=== PATIENT | female | born 1975 | race Caucasian/White ===

== ENCOUNTER 2016-06-12 04:10 | Emergency (ER) | payer OTHER ==
[2016-06-12 04:25] VITALS: BMI 27.4
[2016-06-12] MEDS ORDERED: SODIUM CHLORIDE 0.9% 500 ML INFUS.BAG IV ONE ×2 (04:35→07:09)
--- NOTE | 2016-06-12 05:02 | PDOC ---
History of Present Illness - General History Source: Patient, Law Enforcement Exam Limitations: Other (uncooperative, confused) - History of Present Illness Initial Comments: 06/12/16 05:17 The patient is a 40 year old female with a significant past medical history of seizures, brought by ambulance with police to the Emergency Department with altered mental status. 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 The patient is uncooperative, and combative. She is unaware of what happened, and is not sure why she is here. As per past records, the patient has a history of seizures. Past Medical Hx: trigeminal neuralgia <Bella Peres - Last Filed: 06/12/16 07:10> <Namita Connor - Last Filed: 06/12/16 22:33> - General Chief Complaint: Lethargy Stated Complaint: ALTERED MENTAL STATUS Time Seen by Provider: 06/12/16 04:34 Past History <Bella Peres - Last Filed: 06/12/16 07:10> - Psycho/Social/Smoking Cessation Hx Anxiety: No Suicidal Ideation: No Smoking Status: No Smoking History: Unknown if ever smoked Have you smoked in the past 12 months: No Number of Cigarettes Smoked Daily: 0 Hx Alcohol Use: Yes Drug/Substance Use Hx: Yes <Namita Connor - Last Filed: 06/12/16 22:33> - Past Medical History Allergies/Adverse Reactions: Allergies Allergy/AdvReac Type Severity Reaction Status Date / Time No Known Allergies Allergy Verified 06/12/16 04:18 Home Medications: Ambulatory Orders Carbamazepine Xr [Tegretol Xr -] 400 mg PO BID 06/12/16 Pregabalin [Lyrica -] 75 mg PO BID 06/12/16 Review of Systems - Review of Systems Able to Perform ROS?: No (uncooperative, confused) <Bella Peres - Last Filed: 06/12/16 07:10> *Physical Exam - Vital Signs Last Vital Signs Temp Pulse Resp BP Pulse Ox 98 F 120 H 15 118/78 98 06/12/16 04:19 06/12/16 04:19 06/12/16 04:19 06/12/16 04:40 06/12/16 04:19 - Physical Exam Comments: 06/12/16 05:49 GENERAL: Arousable but combative, rude. A&O x2 HEAD: Missing multiple teeth, unclear of duration. No signs of trauma EYES: Pupils sluggishly reactive. EOMI, sclera anicteric, conjunctiva clear ENT: Auricles normal inspection, hearing grossly normal, nares patent, oropharynx clear without exudates. Moist mucosa NECK: Normal ROM, supple, no lymphadenopathy, JVD, or masses LUNGS: Breath sounds equal, clear to auscultation bilaterally. No wheezes, and no crackles HEART: Regular rate and rhythm, normal S1 and S2, no murmurs, rubs or gallops ABDOMEN: Soft, nontender, normoactive bowel sounds. No guarding, no rebound. No masses. No flank pain. EXTREMITIES: Normal range of motion, no edema. No clubbing or cyanosis. No cords, erythema, or tenderness NEUROLOGICAL: Cranial nerves II through XII grossly intact. SKIN: Warm, Dry, normal turgor, no rashes or lesions noted. <Bella Peres - Last Filed: 06/12/16 07:10> - Vital Signs Last Vital Signs Temp Pulse Resp BP Pulse Ox 98 F 120 H 15 118/78 98 06/12/16 04:19 06/12/16 04:19 06/12/16 04:19 06/12/16 04:19 06/12/16 04:19 <Namita Connor - Last Filed: 06/12/16 22:33> ED Treatment Course - LABORATORY CBC & Chemistry Diagram: 06/12/16 04:51 06/12/16 04:41 - ADDITIONAL ORDERS Additional order review: 06/12/16 04:51 RBC 3.45 L MCV 90.2 MCHC 32.9 RDW 14.2 MPV 7.8 Neutrophils % 53.4 Lymphocytes % 36.3 Monocytes % 7.2 Eosinophils % 2.7 Basophils % 0.4 - RADIOLOGY Radiology Studies Ordered: 06/12/16 06:24 CT brain As reviewed by Dr. Raymundo Carrillo IMPRESSION: No acute intracranial injury seen. - Medications Given in the ED: ED Medications Discontinued Medications Generic Name Dose Route Start Last Admin Trade Name Freq PRN Reason Stop Dose Admin Sodium Chloride 1,000 ml 06/12/16 04:35 06/12/16 04:40 Normal Saline - IV 06/12/16 04:36 1,000 ml ONCE ONE Administration <Bella Peres - Last Filed: 06/12/16 07:10> - LABORATORY CBC & Chemistry Diagram: 06/12/16 04:51 06/12/16 04:41 <Namita Connor - Last Filed: 06/12/16 22:33> Medical Decision Making - Medical Decision Making 06/12/16 06:22 Patient Name: Yong Huitron THIS IS A PRELIMINARY REPORT FROM IMAGING ARTIST AGENT DATE OF SERVICE: 2016-06-12 06:04:27.0 IMAGES: 76 EXAM: CT HEAD WITHOUT IV CONTRAST TECHNIQUE: Axial images from the skull base to the vertex. Bone and soft tissue windows were reviewed. Multi-planar reconstructions from the axial data set: No HISTORY: Altered mental status. COMPARISON: None. FINDINGS: Brain parenchymal architecture appears normal, with preservation of the beebe- white differentiation. Periventricular white matter is unremarkable. Ventricles and basilar cisterns are maintained. No acute intracranial hemorrhage, mass effect or midline shift. No abnormal intra-axial or extra- axial fluid collection is seen. Bones of the calvarium and imaged skull base demonstrate no acute abnormality. Mild mucosal thickening in the mastoid air cells is noted. IMPRESSION: 1. No acute intracranial injury seen. THIS DOCUMENT HAS BEEN ELECTRONICALLY SIGNED 06/12/16 07:07 Pt is more awake now. SHe tells me that she doesn't use drugs. States that she missed several carbamazepine doses. She likely had a seizure, which caused her to pass out at work. Pt's tegretol level is pending. Her acetaminophen level is pending. She should be admitted to telemetry for unwitnessed syncope vs seizure. Pt has no recollection of events. Even after 1L NSS, she still has tachycardia at 100bpm. She will be given a 2nd L of NSS. 06/12/16 07:15 Pt will be signed out to the day ER doctor. UTOX needs collection; cardiac enzymes added to bloods. Admit to hospitalist for unwitnessed syncope vs seizure <Namita Connor - Last Filed: 06/12/16 22:33> *DC/Admit/Observation/Transfer - Attestations Scribe Attestion: 06/12/16 05:52 Documentation prepared by Bella Peres, acting as medical physics teacher for Namita Connor MD. <Bella Peres - Last Filed: 06/12/16 07:10> <Namita Connor - Last Filed: 06/12/16 22:33> Diagnosis at time of Disposition: Seizure - Discharge Dispostion Disposition: HOME Condition at time of disposition: Stable - Referrals Referrals: Sondra Merchant [Primary Care Provider] - - Patient Instructions Printed Discharge Instructions: DI for Seizure Disorder -- Adult
[2016-06-12 05:03] LABS: BASOPHIL 0.4 % (0-2.0); EOSINOPHIL 2.7 % (0-4.5); MCH 29.7 pg (25.7-33.7); MCHC 32.9 g/dl (32.0-36.0); MEAN CELL VOLUME 90.2 fl (80-96); MEAN PLT VOLUME 7.8 fl (7.5-11.1); NEUTROPHILS 53.4 % (42.8-82.8); PLATELET COUNT 334 K/MM3 (134-434); RDW 14.2 % (11.6-15.6); WHITE BLOOD COUNT 6.1 K/mm3 (4.0-10.0)
[2016-06-12 05:18] LABS: INR 1.02 (0.82-1.09); PROTHROMBIN TIME (PATIENT) 11.2 SEC (9.98-11.88)
[2016-06-12 06:36] LABS: ALBUMIN 3.1 g/dl (3.4-5.0); ANION GAP 9 (8-16); CALCIUM 8.4 mg/dL (8.5-10.1); CO2 26 mmol/L (21-32); CREATININE 0.7 mg/dL (0.55-1.02); GLUCOSE,RANDOM 113 mg/dL (74-106); SGOT/AST 15 U/L (15-37); SGPT/ALT 18 U/L (12-78); TOT PROT 7.2 g/dl (6.4-8.2)
[2016-06-12 06:37] LABS: ALK PHOS 80 U/L (45-117); BILIRUBIN,TOTAL < 0.1 mg/dL (0.2-1.0)
[2016-06-12 07:45] VITALS: TEMP 98.3
--- NOTE | 2016-06-12 07:58 | PDOC ---
*Physical Exam - Vital Signs Last Vital Signs Temp Pulse Resp BP Pulse Ox 98.3 F 88 16 107/65 96 06/12/16 07:44 06/12/16 07:44 06/12/16 07:44 06/12/16 07:44 06/12/16 07:44 ED Treatment Course - LABORATORY CBC & Chemistry Diagram: 06/12/16 04:51 06/12/16 04:41 - ADDITIONAL ORDERS Additional order review: Laboratory Results 06/12/16 06/12/16 06/12/16 04:51 04:51 04:51 INR 1.02 Sodium Potassium Chloride Carbon Dioxide Anion Gap BUN Creatinine Creat Clearance w eGFR Random Glucose Calcium Total Bilirubin AST ALT Alkaline Phosphatase Total Protein Albumin Lipase Beta HCG, Quant < 1.0 Serum , Qual Salicylates < 4.0 Acetaminophen Alcohol, Quantitative 06/12/16 06/12/16 06/12/16 04:51 04:51 04:41 INR Sodium Potassium Chloride Carbon Dioxide Anion Gap BUN Creatinine Creat Clearance w eGFR Random Glucose Calcium Total Bilirubin AST ALT Alkaline Phosphatase Total Protein Albumin Lipase Beta HCG, Quant Serum , Qual Negative Salicylates Acetaminophen < 10.0 L Alcohol, Quantitative < 5.0 06/12/16 06/12/16 04:41 04:41 INR Sodium 141 Potassium 4.4 D Chloride 106 Carbon Dioxide 26 Anion Gap 9 BUN 19 H D Creatinine 0.7 Creat Clearance w eGFR > 60 Random Glucose 113 H D Calcium 8.4 L Total Bilirubin < 0.1 L D AST 15 ALT 18 Alkaline Phosphatase 80 Total Protein 7.2 Albumin 3.1 L Lipase 142 Beta HCG, Quant Serum , Qual Salicylates Acetaminophen Alcohol, Quantitative 06/12/16 04:51 RBC 3.45 L MCV 90.2 MCHC 32.9 RDW 14.2 MPV 7.8 Neutrophils % 53.4 Lymphocytes % 36.3 Monocytes % 7.2 Eosinophils % 2.7 Basophils % 0.4 - Medications Given in the ED: ED Medications Discontinued Medications Generic Name Dose Route Start Last Admin Trade Name Freq PRN Reason Stop Dose Admin Sodium Chloride 1,000 ml 06/12/16 04:35 06/12/16 04:40 Normal Saline - IV 06/12/16 04:36 1,000 ml ONCE ONE Administration Medical Decision Making - Medical Decision Making 06/12/16 07:39 Pt endorsed to me by Dr. Connor at 7am shift change. Presented with AMS, lost consciousness at work. She is currently somnolent, but awakens to voice, answers questions. She missed her last dose of tegretol. Suspect seizure, now with post-ictal state. Will continue to monitor until she is more alert. 06/12/16 14:13 Pt more awake at this point, answering questions. She states "I had a seizure". We confirmed her dose of tegretol so she could have a dose in the ED. We discussed that missing any doses can lead to seizures. She is getting IV fluids for mild hypotension. Will cont to monitor. 06/12/16 14:49 Pt eating lunch, with family. She is much more alert, endorses feeling much better. Wishes to go home. *DC/Admit/Observation/Transfer Diagnosis at time of Disposition: Seizure - Discharge Dispostion Disposition: HOME Condition at time of disposition: Stable Admit: No - Referrals Referrals: Sondra Merchant [Primary Care Provider] - - Patient Instructions Printed Discharge Instructions: DI for Seizure Disorder -- Adult - Post Discharge Activity
[2016-06-12 13:13] VITALS: BP 88/49; PULSE 84
[2016-06-12] MEDS ORDERED: SODIUM CHLORIDE 1,000 ML IV STA (13:14)
[2016-06-12] MEDS ORDERED: carBAMazepine 100 MG TAB.CHEW PO ONE (13:18)
[2016-06-12] MEDS ORDERED: carBAMazepine 200 MG TABLET PO ONE (13:18)
[2016-06-12] MEDS ORDERED: carBAMazepine 200 MG TABLET ONE (13:24)
--- NOTE | 2016-06-13 00:41 | EKG ---
Test Reason : Blood Pressure : / mmHG Vent. Rate : 114 BPM Atrial Rate : 114 BPM P-R Int : 138 ms QRS Dur : 076 ms QT Int : 340 ms P-R-T Axes : 043 017 020 degrees QTc Int : 468 ms SINUS TACHYCARDIA OTHERWISE NORMAL ECG WHEN COMPARED WITH ECG OF 27-AUG-2015 19:59, [place] INTERVAL HAS INCREASED T WAVE VARIATION Confirmed by ADITHYA CLAYTON MD ([id number]) on 06/13/2016 12:40:51 AM Referred By: Confirmed By:ADITHYA CLAYTON MD
== END 2016-06-12 14:48 | disposition home or self-care (01) ==
LOC: JER 04:10
PROC: 3E0337Z Introduction of Electrolytic and Water Balance Substance into Peripheral Vein, Percutaneous Approach (ICD-10-PCS; principal; 2016-06-12)
DX: G40.802 Other epilepsy, not intractable, without status epilepticus (principal); Z91.14 Patient's other noncompliance with medication regimen
CPT/HCPCS: 36415; 70450-TC; 71010-TC; 80053; 80307; 83690; 84702; 84703; 85025; 85610; 93005; 93010; 96360; 99284-25

== ENCOUNTER 2016-08-20 19:26 | Emergency (ER) | payer OTHER ==
--- NOTE | 2016-08-20 19:43 | PDOC ---
History of Present Illness - General History Source: Patient Exam Limitations: No Limitations - History of Present Illness Initial Comments: 08/20/16 20:32 The patient is a 40-year-old female with a significant past medical history of seizures and trigeminal neuralgia, and presents to the emergency department with pain to the left side of her face today. She states that the pain is unrelieved with the carbamazepine or Lyrica provided by her doctor. She states that the facial pain is causing her difficulty when eating, talking, or brushing her teeth. She denies any facial swelling, decreased sensation to the face, or neck discomfort. The patient denies chest pain, shortness of breath, headache and dizziness. The patient denies fever, chills, nausea, vomit, diarrhea and constipation. Allergies: NKDA Social History: Denies any toxic habits Neurologist: Dr. Boothe <Edna Valenzuela - Last Filed: 08/20/16 20:32> <Namita Connor - Last Filed: 08/20/16 22:33> - General Chief Complaint: Pain Stated Complaint: PAIN Time Seen by Provider: 08/20/16 19:38 Past History <Edna Valenzuela - Last Filed: 08/20/16 20:32> - Past Medical History Other medical history: trigeminal neuralgia - Psycho/Social/Smoking Cessation Hx Anxiety: No Suicidal Ideation: No Smoking Status: No Smoking History: Never smoked Have you smoked in the past 12 months: No Number of Cigarettes Smoked Daily: 0 Hx Alcohol Use: Yes Drug/Substance Use Hx: Yes <Namita Connor - Last Filed: 08/20/16 22:33> - Past Medical History Allergies/Adverse Reactions: Allergies Allergy/AdvReac Type Severity Reaction Status Date / Time No Known Allergies Allergy Verified 08/20/16 19:32 Home Medications: Ambulatory Orders Carbamazepine Xr [Tegretol Xr -] 400 mg PO BID 06/12/16 Pregabalin [Lyrica -] 75 mg PO BID 06/12/16 Tramadol HCl/Acetaminophen [Tramadol-Acetaminophn 37.5-325] 2 tab PO TID #30 tablet MDD 6 08/20/16 Review of Systems - Review of Systems Able to Perform ROS?: Yes Comments:: 08/20/16 20:33 CONSTITUTIONAL: Absent: fever, chills, diaphoresis, generalized weakness, malaise, loss of appetite HEENT: Present: (+) facial pain Absent: rhinorrhea, nasal congestion, throat pain, throat swelling, difficulty swallowing, mouth swelling, ear pain, eye pain, visual changes CARDIOVASCULAR: Absent: chest pain, syncope, palpitations, irregular heart rate, lightheadedness , peripheral edema RESPIRATORY: Absent: cough, shortness of breath, dyspnea with exertion, orthopnea, wheezing, stridor, hemoptysis GASTROINTESTINAL: Absent: abdominal pain, abdominal distension, nausea, vomiting, diarrhea, constipation, melena, hematochezia GENITOURINARY: Absent: dysuria, frequency, urgency, hesitancy, hematuria, flank pain, genital pain MUSCULOSKELETAL: Absent: myalgia, arthralgia, joint swelling SKIN: Absent: rash, itching, pallor HEMATOLOGIC/IMMUNOLOGIC: Absent: easy bleeding, easy bruising, lymphadenopathy, frequent infections ENDOCRINE: Absent: unexplained weight gain, unexplained weight loss, heat intolerance, cold intolerance NEUROLOGIC: Absent: headache, focal weakness or paresthesias, dizziness, unsteady gait, seizure, mental status changes, bladder or bowel incontinence PSYCHIATRIC: Absent: anxiety, depression, suicidal or homicidal ideation, hallucinations. <Edna Valenzuela - Last Filed: 08/20/16 20:32> *Physical Exam - Vital Signs Last Vital Signs Temp Pulse Resp BP Pulse Ox 99.4 F 72 18 124/72 97 08/20/16 19:28 08/20/16 19:28 08/20/16 19:28 08/20/16 19:28 08/20/16 19:28 - Physical Exam Comments: 08/20/16 20:33 GENERAL: Well developed, well nourished. Awake and alert. No acute distress. HEENT: Normocephalic, atraumatic. PERRLA, EOMI. No conjunctival pallor. Sclera are non- icteric. Moist mucous membranes. Oropharynx is clear. NECK: Supple. Full ROM. No JVD. Carotid pulses 2+ and symmetric, without bruits. No thyromegaly. No lymphadenopathy. CARDIOVASCULAR: Regular rate and rhythm. No murmurs, rubs, or gallops. Distal pulses are 2+ and symmetric. PULMONARY: No evidence of respiratory distress. Lungs clear to auscultation bilaterally. No wheezing, rales or rhonchi. ABDOMINAL: Soft. Non-tender. Non-distended. No rebound or guarding. No organomegaly. Normoactive bowel sounds. MUSCULOSKELETAL Normal range of motion at all joints. No bony deformities or tenderness. No CVA tenderness. EXTREMITIES: No cyanosis. No clubbing. No edema. No calf tenderness. SKIN: Warm and dry. Normal capillary refill. No rashes. No jaundice. NEUROLOGICAL: Alert, awake, appropriate. Cranial nerves 2-12 intact. No deficits to light touch and temperature in face, upper extremities and lower extremities. No motor deficits in the in face, upper extremities and lower extremities. Normoreflexic in the upper and lower extremities. Normal speech. Toes are down- going bilaterally. PSYCHIATRIC: Cooperative. Good eye contact. Appropriate mood and affect. <Edna Valenzuela - Last Filed: 08/20/16 20:32> - Vital Signs Last Vital Signs Temp Pulse Resp BP Pulse Ox 99.4 F 72 18 124/72 97 08/20/16 19:28 08/20/16 19:28 08/20/16 19:28 08/20/16 19:28 08/20/16 19:28 <Namita Connor - Last Filed: 08/20/16 22:33> ED Treatment Course - Medications Given in the ED: ED Medications Discontinued Medications Generic Name Dose Route Start Last Admin Trade Name Madalyn PRN Reason Stop Dose Admin Ibuprofen 600 mg 08/20/16 19:47 08/20/16 19:59 Motrin - PO 08/20/16 19:48 600 mg ONCE ONE Administration Ketorolac Tromethamine 30 mg 08/20/16 19:54 08/20/16 20:08 Toradol Injection - IVPUSH 08/20/16 19:55 30 mg ONCE ONE Administration Sodium Chloride 1,000 ml 08/20/16 19:53 08/20/16 20:08 Normal Saline - IV 08/20/16 19:54 1,000 ml ONCE ONE Administration <Edna Valenzuela - Last Filed: 08/20/16 20:32> Medical Decision Making - Medical Decision Making 08/20/16 22:31 Pt comes with trigeminal neuralgia attack to the right side of her face. She follows with Dr. Boothe. Incidentally she has had percocet detox in her past, so I will not treat with narcotics. score caller neuro Dr. Hoff in the ER at this time. e spoke to the patient, and offered her hydration and toradol. SHe will follow with her neurologiost. I will give her tramadol to go. No need for labs at this time. She has a normal physical exam. CN 5-2 affected. <Namita Connor - Last Filed: 08/20/16 22:33> *DC/Admit/Observation/Transfer - Attestations Scribe Attestion: 08/20/16 20:33 Documentation prepared by Edna Valenzuela, acting as medical referral coordinator for Namita Connor MD. <Edna Valenzuela - Last Filed: 08/20/16 20:32> - Discharge Dispostion Admit: No <Namita Connor - Last Filed: 08/20/16 22:33> Diagnosis at time of Disposition: Trigeminal neuralgia, Trigeminal neuralgia of right side of face - Discharge Dispostion Disposition: HOME Condition at time of disposition: Stable - Prescriptions Prescriptions: Tramadol HCl/Acetaminophen [Tramadol-Acetaminophn 37.5-325] 2 tab PO TID #30 tablet MDD 6 - Referrals Referrals: Sondra Merchant [Primary Care Provider] - Raymundo Boothe MD [Staff Physician] - Ariel Hoff MD [Staff Physician] - - Patient Instructions Printed Discharge Instructions: DI for Trigeminal Neuralgia
[2016-08-20] MEDS ORDERED: IBUPROFEN 600 MG TABLET (FP) PO ONE ×2 (19:47→19:49)
[2016-08-20] MEDS ORDERED: SODIUM CHLORIDE 0.9% 1000 ML INFUS.BAG IV ONE (19:53)
[2016-08-20] MEDS ORDERED: KETOROLAC TROMETHAMINE 30 MG/1 ML VIAL IVPUSH ONE (19:54)
[2016-08-20] MEDS ORDERED: KETOROLAC TROMETHAMINE 30 MG/1 ML VIAL ONE (20:01)
[2016-08-20 20:14] VITALS: BP 124/72; PULSE 72; TEMP 99.4; BMI 24.5
== END 2016-08-20 21:12 | disposition home or self-care (01) ==
LOC: JER 19:26
PROC: 3E0333Z Introduction of Anti-inflammatory into Peripheral Vein, Percutaneous Approach (ICD-10-PCS; principal; 2016-08-20)
DX: G50.0 Trigeminal neuralgia (principal); G40.909 Epilepsy, unspecified, not intractable, without status epilepticus
CPT/HCPCS: 96374; 99282-25

== ENCOUNTER 2016-08-22 15:56 | Emergency (ER) | payer OTHER ==
[2016-08-22 16:22] VITALS: BP 142/87; PULSE 84; TEMP 100.2; BMI 23.8
--- NOTE | 2016-08-22 17:24 | PDOC ---
History of Present Illness - General Chief Complaint: Pain, Acute Stated Complaint: TRIGEMINAL NEURALGIA EXACERBATION Time Seen by Provider: 08/22/16 16:44 Past History - Past Medical History Allergies/Adverse Reactions: Allergies Allergy/AdvReac Type Severity Reaction Status Date / Time No Known Allergies Allergy Verified 08/22/16 16:18 Home Medications: Ambulatory Orders Carbamazepine Xr [Tegretol Xr -] 400 mg PO BID 06/12/16 Pregabalin [Lyrica -] 75 mg PO BID 06/12/16 Tramadol HCl/Acetaminophen [Tramadol-Acetaminophn 37.5-325] 2 tab PO TID #30 tablet MDD 6 08/20/16 - Psycho/Social/Smoking Cessation Hx Anxiety: No Suicidal Ideation: No Smoking Status: No Smoking History: Never smoked Have you smoked in the past 12 months: No Number of Cigarettes Smoked Daily: 0 Hx Alcohol Use: Yes Drug/Substance Use Hx: Yes *Physical Exam - Vital Signs Last Vital Signs Temp Pulse Resp BP Pulse Ox 100.2 F H 84 19 142/87 98 08/22/16 16:18 08/22/16 16:18 08/22/16 16:18 08/22/16 16:18 08/22/16 16:18 Medical Decision Making - Medical Decision Making 08/22/16 18:11I am seeing this pt with Dr Quach the resident and he has spoken w Dr Raymundo Boothe about this pt's trigeminal neuralgia -pt has suffered w this for several years, Now her lyrica and tegretol are not helping -pt is on distress holding the rt side of her face *DC/Admit/Observation/Transfer Diagnosis at time of Disposition: Trigeminal neuralgia of right side of face - Discharge Dispostion Disposition: HOME Condition at time of disposition: Stable - Referrals Referrals: Sondra Merchant [Primary Care Provider] - Raymundo Boothe MD [Staff Physician] - - Patient Instructions Printed Discharge Instructions: DI for Trigeminal Neuralgia
[2016-08-22] MEDS ORDERED: OXcarbazepine 300 MG/5 ML 250 ML BULK BOTTLE PO ONE (17:55)
--- NOTE | 2016-08-22 17:59 | PDOC ---
History of Present Illness - General Chief Complaint: Pain, Acute Stated Complaint: TRIGEMINAL NEURALGIA EXACERBATION Time Seen by Provider: 08/22/16 16:44 History Source: Patient Exam Limitations: No Limitations - History of Present Illness Initial Comments: 40 F with h/o trigeminal neuralgia presented to the ED with severe pain in R face. She stated the pain has been going on for 5 days and it's getting worse. It's located in R face, non-radiating, stabbing like, similar to the pain she always has. Denies fever, chills, chest pain, sob, n/v, urinary or bowel symptoms. Past History - Past Medical History Allergies/Adverse Reactions: Allergies Allergy/AdvReac Type Severity Reaction Status Date / Time No Known Allergies Allergy Verified 08/22/16 16:18 Home Medications: Ambulatory Orders Carbamazepine Xr [Tegretol Xr -] 400 mg PO BID 06/12/16 Pregabalin [Lyrica -] 75 mg PO BID 06/12/16 Tramadol HCl/Acetaminophen [Tramadol-Acetaminophn 37.5-325] 2 tab PO TID #30 tablet MDD 6 08/20/16 - Psycho/Social/Smoking Cessation Hx Anxiety: No Suicidal Ideation: No Smoking Status: No Smoking History: Never smoked Have you smoked in the past 12 months: No Number of Cigarettes Smoked Daily: 0 Hx Alcohol Use: Yes Drug/Substance Use Hx: Yes Review of Systems - Review of Systems Able to Perform ROS?: Yes Is the patient limited Indonesian proficient: No Constitutional: No: Chills, Fever Respiratory: No: Cough, Shortness of Breath Cardiac (ROS): No: Chest Pain ABD/GI: No: Nausea, Vomiting Neurological: Yes: Other (severe pain in R face). No: Headache, Numbness, Paresthesia, Seizure, Tingling, Weakness, Unsteady Gait *Physical Exam - Vital Signs Last Vital Signs Temp Pulse Resp BP Pulse Ox 100.2 F H 84 19 142/87 98 08/22/16 16:18 08/22/16 16:18 08/22/16 16:18 08/22/16 16:18 08/22/16 16:18 - Physical Exam General Appearance: No: Apparent Distress Respiratory/Chest: positive: Lungs Clear, Normal Breath Sounds Cardiovascular: positive: Regular Rhythm, Regular Rate, S1, S2. negative: Murmur Neurologic: positive: Numbness, Sensory Deficit Medical Decision Making - Medical Decision Making 08/22/16 18:[address] Boothe. Will urge the patient to restart her tegretol and lyrica as directed and follow up with Dr. Boothe as soon as possible in his office. 08/22/16 18:45 Explained to patient that compliance and follow up with her neurologist is very important. *DC/Admit/Observation/Transfer Diagnosis at time of Disposition: Trigeminal neuralgia of right side of face - Discharge Dispostion Disposition: HOME Condition at time of disposition: Stable Admit: No - Referrals Referrals: Sondra Merchant [Primary Care Provider] - Raymundo Boothe MD [Staff Physician] - - Patient Instructions Printed Discharge Instructions: DI for Trigeminal Neuralgia
== END 2016-08-22 18:45 | disposition home or self-care (01) ==
LOC: JER 15:56
DX: G50.0 Trigeminal neuralgia (principal)
CPT/HCPCS: 99281-25

== ENCOUNTER 2017-09-26 11:57 | Emergency (ER) | payer OTHER ==
[2017-09-26 12:26] VITALS: BP 112/80; PULSE 62; TEMP 98.1; BMI 31.1
[2017-09-26] MEDS ORDERED: MAGNESIUM HYDROX 2400MG/30ML ORAL SUSPENSION 30 ML CUP PO ONE (13:53)
[2017-09-26] MEDS ORDERED: MAG HYDROX/AL HYDROX/SIMETH 30 ML UNIT-DOSE CUP ONE (13:58)
--- NOTE | 2017-09-26 13:59 | PDOC ---
History of Present Illness - General Chief Complaint: Constipation Stated Complaint: ABD PAIN Time Seen by Provider: 09/26/17 12:42 History Source: Patient Exam Limitations: No Limitations - History of Present Illness Initial Comments: 09/26/17 13:53 42 year old female with no medical history and surgical history of x 1 , presents with constipation x 4-5 days and abdominal discomfort after eating. Reports trying to use medication but only passes occasional rodo. Denies nausea, vomiting or diarrhea. Timing/Duration: reports: getting worse Quality: reports: fullness Abdominal Pain Onset Location: reports: RUQ, epigastric Pain Radiation: reports: no radiation Activities at Onset: reports: eating Treatment Prior to Arrive: improves with: laxative Aggravating Factors: improves with: Eating Alleviating Factors: improves with: Passing Gas Past History - Travel Traveled outside of the country in the last 30 days: No Close contact w/someone who was outside of country & ill: No - Past Medical History Allergies/Adverse Reactions: Allergies Allergy/AdvReac Type Severity Reaction Status Date / Time No Known Allergies Allergy Verified 09/26/17 12:23 Home Medications: Ambulatory Orders Pregabalin [Lyrica -] 75 mg PO BID 06/12/16 Buprenorphine HCl/Naloxone HCl [Suboxone 8 mg-2 mg Sl Tablets] 1 each SL ASDIR 09/26/17 Magnesium Hydroxide [Milk of Magnesia] 400 mg PO TID #1 oral.susp 09/26/17 Polyethylene Glycol 3350 [Miralax (For Daily Use) -] 17 gm PO DAILY #1 bottle - Suicide/Smoking/Psychosocial Hx Smoking Status: No Smoking History: Never smoked Have you smoked in the past 12 months: No Number of Cigarettes Smoked Daily: 0 Hx Alcohol Use: Yes Drug/Substance Use Hx: Yes Abd/GI Specific PMHX - Complaint Specific PMHX Colitis: No Diverticulitis: No GERD: No Irritable Bowel Synd (IBS): No GI Ulcer Disease: No Review of Systems - Review of Systems Able to Perform ROS?: Yes Is the patient limited Bengali proficient: No Constitutional: No: Chills, Fever, Night Sweats, Weakness HEENTM: No: Nose Pain, Nose Congestion, Throat Swelling, Mouth Pain Respiratory: No: Orthopnea, Shortness of Breath, Stridor, Productive cough Cardiac (ROS): No: Chest Pain, Lightheadedness, Palpitations ABD/GI: Yes: Abdominal Distended, Constipated, Abdominal cramping. No: Nausea Musculoskeletal: No: Back Pain, Gout, Joint Pain, Muscle Weakness, Neck Pain *Physical Exam - Vital Signs Last Vital Signs Temp Pulse Resp BP Pulse Ox 98.1 F 62 20 112/80 100 09/26/17 12:23 09/26/17 12:23 09/26/17 12:23 09/26/17 12:23 09/26/17 12:23 - Physical Exam General Appearance: Yes: Nourished, Appropriately Dressed HEENT: positive: MELINA, Pharynx Normal Neck: positive: Supple. 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 mom given abdominal upright done 09/26/17 14:37 patient reports good return with milk of magnesia 09/26/17 19:32 rx: miralax, mom *DC/Admit/Observation/Transfer Diagnosis at time of Disposition: Constipation Qualifiers: Constipation type: drug induced constipation Qualified Code(s): K59.03 - Drug induced constipation - Discharge Dispostion Disposition: HOME Condition at time of disposition: Good Decision to Admit order: No - Prescriptions Prescriptions: Magnesium Hydroxide [Milk of Magnesia] 400 mg PO TID #1 oral.susp Polyethylene Glycol 3350 [Miralax (For Daily Use) -] 17 gm PO DAILY #1 bottle - Referrals Referrals: Jamil Live MD [Primary Care Provider] - - Patient Instructions Additional Instructions: Please drink water, and include fruits and vegetable in your diet. Also don't wait to use the bathroom. Call primary physician for follow up appointment - Post Discharge Activity Forms/Work/School Notes: Back to Work
== END 2017-09-26 15:21 | disposition home or self-care (01) ==
LOC: JERFT 11:57
DX: K59.03 Drug induced constipation (principal)
CPT/HCPCS: 74021-TC-FY; 99281-25

== ENCOUNTER 2018-01-19 02:37 | Emergency (ER) | payer OTHER ==
--- NOTE | 2018-01-19 02:47 | PDOC ---
History of Present Illness - General Stated Complaint: PAIN Time Seen by Provider: 01/19/18 02:41 History Source: Patient - History of Present Illness Initial Comments: 01/19/18 02:50 Patient is a 42 year old female with a PMH of seizures and Trigeminal Neuralgia presents to our ED with a exacerbation of her symptoms. Patient states she normally takes Carbamezapine (400 mg daily) however it is not relieving her pain. She took two additional 200 mg pills without any relief of her symptoms. Patient states rubbing her face relieves her pain. Patient states she follows with Dr. Boothe and she last saw him one month previous. Patient states she is adherent to her medication regimen of Carbamezapine (400 mg QD) and Lyrica (75 mg BID) Patient denies chest pain, shortness of breath. Patient denies abdominal pain, nausea/vomiting, diarrhea/constipation As per EMR patient was last evaluated in our ED for her Trigeminal Neuralgia in 2016 at which time her pain resolved with Toradol. Past History - Past Medical History Allergies/Adverse Reactions: Allergies Allergy/AdvReac Type Severity Reaction Status Date / Time No Known Allergies Allergy Verified 01/19/18 02:55 Home Medications: Ambulatory Orders Pregabalin [Lyrica -] 75 mg PO BID 06/12/16 Buprenorphine HCl/Naloxone HCl [Suboxone 8 mg-2 mg Sl Tablets] 1 each SL ASDIR 09/26/17 Magnesium Hydroxide [Milk of Magnesia] 400 mg PO TID #1 oral.susp 09/26/17 Polyethylene Glycol 3350 [Miralax (For Daily Use) -] 17 gm PO DAILY #1 bottle - Suicide/Smoking/Psychosocial Hx Smoking Status: No Smoking History: Never smoked Have you smoked in the past 12 months: No Number of Cigarettes Smoked Daily: 0 Hx Alcohol Use: Yes Drug/Substance Use Hx: Yes Review of Systems - Review of Systems Constitutional: No: Chills, Fever HEENTM: No: Blurred Vision, Double Vision Respiratory: No: Cough, Shortness of Breath Cardiac (ROS): No: Chest Pain, Lightheadedness, Syncope ABD/GI: No: Constipated, Diarrhea, Nausea, Vomiting *Physical Exam - Physical Exam General Appearance: Yes: Nourished HEENT: positive: Normal Voice, Hearing Grossly Normal, Other (R sided skin abrasion in distribution of V3) Neck: positive: Trachea midline, Supple Respiratory/Chest: positive: Lungs Clear, Normal Breath Sounds Cardiovascular: positive: S1, S2. negative: Edema, Murmur Gastrointestinal/Abdominal: positive: Normal Bowel Sounds, Soft Extremity: positive: Normal Capillary Refill, Normal Inspection Integumentary: positive: Normal Color, Dry, Warm Neurologic: positive: Fully Oriented, Alert ED Treatment Course - LABORATORY CBC & Chemistry Diagram: 01/19/18 03:03 01/19/18 03:02 Medical Decision Making - Medical Decision Making 01/19/18 03:01 42 year old female presents with pain 2/2 to her Trigeminal neuralgia pain (V3 distribution) unrelieved by her medication regimen. Will give IV hydration + a combination of Tylenol, Toradol, Baclofen and Ativan. Reassess. 01/19/18 05:01 Patient continues to c/o pain. Tachycardia resolved (HR 90's) Will give Tramadol and reassess. 01/19/18 06:04 Patient resting comfortably, tolerating PO intake. Will discharge home with return precautions and instruction to see neurology today. *DC/Admit/Observation/Transfer Diagnosis at time of Disposition: Pain - Discharge Dispostion Disposition: HOME Condition at time of disposition: Good Decision to Admit order: No - Referrals Referrals: Sondra Merchant [Primary Care Provider] - Raymundo Boothe MD [Staff Physician] - - Patient Instructions Printed Discharge Instructions: DI for Trigeminal Neuralgia Additional Instructions: Please follow up with Dr. Boothe today. Return to the Emergency Department for any new/worsening/concerning symptoms. - Post Discharge Activity
[2018-01-19] MEDS ORDERED: SODIUM CHLORIDE 0.9% 500 ML INFUS.BAG IV ONE (02:49)
[2018-01-19 02:57] VITALS: BMI 27.3
[2018-01-19] MEDS ORDERED: KETOROLAC TROMETHAMINE 30 MG/1 ML VIAL IVPUSH ONE (02:58)
[2018-01-19] MEDS ORDERED: BACLOFEN 10 MG TABLET (FP) PO ONE (02:58)
[2018-01-19] MEDS ORDERED: ACETAMINOPHEN 1000 MG/100 ML VIAL (NON FORMULARY) IVPB ONE (03:00)
[2018-01-19] MEDS ORDERED: BACLOFEN 10 MG TABLET (FP) ONE (03:06)
[2018-01-19] MEDS ORDERED: ACETAMINOPHEN INJECTION 100 ML IVPB ONE (03:06)
[2018-01-19] MEDS ORDERED: KETOROLAC TROMETHAMINE 30 MG/1 ML VIAL ONE (03:06)
[2018-01-19] MEDS ORDERED: LORazepam 2 MG/ML SDV VIAL ONE (03:06)
--- NOTE | 2018-01-19 03:30 | PDOC ---
Attending Attestation - Resident Resident Name: Sylvia Angeles - ED Attending Attestation I have performed the following: I have examined & evaluated the patient, The case was reviewed & discussed with the resident, I agree w/resident's findings & plan, Exceptions are as noted - HPI HPI: 01/19/18 03:27 40 F with h/o seizures, trigemial neuralgia, presenting with R sided facial pain , consistent with her previous episodes of trigeminal neuralgia. Pt denies any new or different symptoms. Pt reports taking carbamazepine and lyrica at home with no relief. - Physicial Exam PE: 01/19/18 03:28 GENERAL: Awake, alert, and fully oriented, in no acute distress. HEAD: No signs of trauma EYES: PERRLA, EOMI, sclera anicteric, conjunctiva clear ENT: Auricles normal inspection, hearing grossly normal, nares patent, oropharynx clear without exudates. Moist mucosa NECK: Nontender, no stepoffs, Normal ROM, supple, no lymphadenopathy, JVD, or masses LUNGS: Breath sounds equal, clear to auscultation bilaterally. No wheezes, and no crackles HEART: Regular rate and rhythm, normal S1 and S2, no murmurs, rubs or gallops ABDOMEN: Soft, nontender, normoactive bowel sounds. No guarding, no rebound. No masses EXTREMITIES: Normal range of motion, no edema. No clubbing or cyanosis. No cords, erythema, or tenderness NEUROLOGICAL: + hyperesthesia R side of face, Cranial nerves II through XII intact. 5/5 strength and sensation in all extremities, Normal speech, normal gait, normal cerebellar function SKIN: Warm, Dry, normal turgor, no rashes or lesions noted. - Medical Decision Making 01/19/18 03:29 42 F with trigeminal neuralgia pain. Neuro exam non-focal. No s/s of infectious process. Pt tachycardic in ED, likely 2/2 pain and anxiety. - Labs - IVF - Pain control 01/19/18 06:03 Labs wnl Pain improved with meds Vital signs improved - HR now 88 Pt ambulatory in ED, comfortable appearing with steady gait. Pt is well appearing, with normal vitals. Clinically stable for DC at this time. I discussed the physical exam findings, ancillary test results and final diagnoses with the patient. I answered all of the patient's questions. The patient was satisfied with the care received and felt comfortable with the discharge plan and treatment plan. The patient agrees to follow up with the primary care physician within 24-72 hours.
[2018-01-19 03:31] LABS: BASO % 0.4 % (0-2.0); EOS % 2.7 % (0-4.5); HEMATOCRIT 40.1 % (32.4-45.2); HEMOGLOBIN 13.1 GM/dL (10.7-15.3); MCH 28.7 pg (25.7-33.7); MCHC 32.8 g/dl (32.0-36.0); MEAN CELL VOLUME 87.5 fl (80-96); MEAN PLT VOLUME 8.4 fl (7.5-11.1); MONO % 6.4 % (3.8-10.2); NEUT % 45.5 % (42.8-82.8); PLATELET COUNT 298 K/MM3 (134-434); RBC 4.58 M/mm3 (3.60-5.2); RDW 15.5 % (11.6-15.6); WHITE BLOOD COUNT 10.5 K/mm3 (4.0-10.0)
[2018-01-19 03:58] LABS: ALBUMIN 3.5 g/dl (3.4-5.0); ALK PHOS 96 U/L (45-117); ANION GAP 6 MMOL/L (8-16); BILIRUBIN,TOTAL 0.3 mg/dL (0.2-1); BLOOD UREA NITROGEN 14 mg/dL (7-18); CALCIUM 9.1 mg/dL (8.5-10.1); CHLORIDE 103 mmol/L (98-107); CO2 28 mmol/L (21-32); CREATININE 0.8 mg/dL (0.55-1.3); GLUCOSE,RANDOM 124 mg/dL (74-106); SGOT/AST 21 U/L (15-37); SGPT/ALT 27 U/L (13-61); SODIUM 137 mmol/L (136-145); TOT PROT 8.3 g/dl (6.4-8.2)
[2018-01-19] MEDS ORDERED: traMADol HCL 50 MG TABLET PO ONE (05:01)
[2018-01-19] MEDS ORDERED: traMADol HCL 50 MG TABLET ONE (05:06)
[2018-01-19 05:10] VITALS: TEMP 98.5
[2018-01-19] MEDS ORDERED: morphine CARPU-JECT 4 MG/1 ML DISP.SYRIN IVPUSH ONE (05:45)
[2018-01-19] MEDS ORDERED: morphine SULFATE 4 MG/ML VIAL ONE (05:49)
[2018-01-19 06:14] VITALS: BP 119/68; PULSE 82
== END 2018-01-19 06:14 | disposition home or self-care (01) ==
LOC: JER 02:37
PROC: 3E033NZ Introduction of Analgesics, Hypnotics, Sedatives into Peripheral Vein, Percutaneous Approach (ICD-10-PCS; principal; 2018-01-19)
PROC: 3E0333Z Introduction of Anti-inflammatory into Peripheral Vein, Percutaneous Approach (ICD-10-PCS; 2018-01-19)
PROC: 3E0337Z Introduction of Electrolytic and Water Balance Substance into Peripheral Vein, Percutaneous Approach (ICD-10-PCS; 2018-01-19)
DX: R52 Pain, unspecified (principal); G50.0 Trigeminal neuralgia
CPT/HCPCS: 36415; 80053; 85025; 96361; 96374; 96375; 99282-25; J0131; J0475

== ENCOUNTER 2019-01-01 03:16 | Emergency (ER) | payer OTHER | END 2019-01-01 04:39 | disposition home or self-care (01) | LOC: JER 03:16 | DX: H60.501 Unspecified acute noninfective otitis externa, right ear (principal); K14.6 Glossodynia ==

== ENCOUNTER 2021-06-19 19:19 | Emergency (ER) | payer OTHER ==
[2021-06-19 19:31] VITALS: TEMP 97.9; BMI 35.8
[2021-06-19] MEDS ORDERED: SODIUM CHLORIDE 0.9% 500 ML INFUS.BAG IV ONE (19:57)
[2021-06-19] MEDS ORDERED: KETOROLAC TROMETHAMINE 30 MG/1 ML VIAL IVPUSH ONE (19:57)
[2021-06-19] MEDS ORDERED: ONDANSETRON 4 MG/2 ML VIAL IVPUSH ONE (19:57)
[2021-06-19] MEDS ORDERED: ONDANSETRON 4 MG/2 ML VIAL ONE (20:23)
[2021-06-19] MEDS ORDERED: KETOROLAC TROMETHAMINE 30 MG/1 ML VIAL ONE (20:23)
[2021-06-19 20:58] LABS: BASO % 0.4 % (0-2.0); EOS % 1.6 % (0-4.5); HEMATOCRIT 36.3 % (32.4-45.2); HEMOGLOBIN 12.4 GM/dL (10.7-15.3); LYMPH % 21.9 % (8-40); MCH 31.3 pg (25.7-33.7); MEAN CELL VOLUME 92.1 fl (80-96); MEAN PLT VOLUME 7.4 fl (7.5-11.1); MONO % 7.5 % (3.8-10.2); NEUT % 68.6 % (42.8-82.8); PLATELET COUNT 303 10^3/uL (134-434); RBC 3.94 M/mm3 (3.60-5.2); RDW 13.7 % (11.6-15.6)
[2021-06-19] MEDS ORDERED: MAG HYDROX/ALH/SMC/DPHA/LIDO 240 ML MOUTHWASH MM SCH (20:58)
[2021-06-19 21:11] LABS: CALCIUM 9.1 mg/dL (8.5-10.1)
[2021-06-19 21:12] LABS: ALBUMIN 3.6 g/dl (3.4-5.0); BLOOD UREA NITROGEN 12.3 mg/dL (7-18)
[2021-06-19 21:16] LABS: BILIRUBIN,TOTAL 0.1 mg/dL (0.2-1); CREATININE 0.8 mg/dL (0.55-1.3); TOT PROT 7.9 g/dl (6.4-8.2)
[2021-06-19] MEDS ORDERED: CLINDAMYCIN HCL 300 MG CAPSULE PO ONE (22:06)
[2021-06-19] MEDS ORDERED: CLINDAMYCIN HCL 150 MG CAPSULE (FP) ONE (22:13)
[2021-06-19 22:32] VITALS: BP 134/87; PULSE 88
[2021-06-20] MEDS ORDERED: MAG HYDROX/ALH/SMC/DPHA/LIDO 240 ML MOUTHWASH MM SCH
[2021-06-20] MEDS ORDERED: MAG HYDROX/ALH/SMC/DPHA/LIDO 240 ML MOUTHWASH MM ONE (20:23)
== END 2021-06-19 22:15 | disposition home or self-care (01) ==
LOC: JER 19:19
PROC: 3E033GC Introduction of Other Therapeutic Substance into Peripheral Vein, Percutaneous Approach (ICD-10-PCS; principal; 2021-06-19)
DX: K04.7 Periapical abscess without sinus (principal); K13.70 Unspecified lesions of oral mucosa
CPT/HCPCS: 36415; 80053; 85025; 96374; 96375; 99284-25

== ENCOUNTER 2021-07-16 20:45 | Emergency (ER) | payer OTHER ==
[2021-07-16 20:57] VITALS: BP 134/87; PULSE 79; TEMP 97.6; BMI 35.1
[2021-07-16] MEDS ORDERED: KETOROLAC TROMETHAMINE 60 MG/2 ML VIAL IM ONE (21:24)
[2021-07-16] MEDS ORDERED: KETOROLAC TROMETHAMINE 60 MG/2 ML VIAL ONE (21:35)
== END 2021-07-16 21:53 | disposition home or self-care (01) ==
LOC: JER 20:45 → JERFT 20:45
PROC: 3E023GC Introduction of Other Therapeutic Substance into Muscle, Percutaneous Approach (ICD-10-PCS; principal; 2021-07-16)
DX: R68.84 Jaw pain (principal); K08.89 Other specified disorders of teeth and supporting structures
CPT/HCPCS: 99284-25

== ENCOUNTER 2022-11-20 04:04 | Emergency (ER) | payer OTHER ==
[2022-11-20 04:09] VITALS: BMI 34.7
[2022-11-20] MEDS ORDERED: ACETAMINOPHEN 500 MG TABLET (FP) PO ONE (05:05)
[2022-11-20] MEDS ORDERED: ACETAMINOPHEN 325 MG TABLET (FP) ONE (05:13)
[2022-11-20 10:10] VITALS: TEMP 97.7
[2022-11-20] MEDS ORDERED: KETOROLAC TROMETHAMINE 30 MG/1 ML VIAL IM ONE (11:03)
[2022-11-20] MEDS ORDERED: DIPHTH,PERTUSS(ACELL),TET 0.5 ML DISP.SYRIN IM ONE ×2 (11:44→11:47)
[2022-11-20] MEDS ORDERED: BACITRACIN ZINC 15 GM TUBE TOPICAL OINTMENT TP ONE (12:22)
[2022-11-20 12:36] VITALS: BP 110/66; PULSE 50; RESP 14
[2022-11-20] MEDS ORDERED: BACITRACIN 0.9 GM PACKET ONE (12:55)
== END 2022-11-20 13:13 | disposition home or self-care (01) ==
LOC: JER 04:04
PROC: 3E023GC Introduction of Other Therapeutic Substance into Muscle, Percutaneous Approach (ICD-10-PCS; principal; 2022-11-20)
PROC: 3E0234Z Introduction of Serum, Toxoid and Vaccine into Muscle, Percutaneous Approach (ICD-10-PCS; 2022-11-20)
DX: S81.032A Puncture wound without foreign body, left knee, initial encounter (principal); X99.8XXA Assault by other sharp object, initial encounter
CPT/HCPCS: 70450-TC; 72125-TC; 73560-TC-LT-FY; 90471; 90715; 96372; 99284-25